=== PATIENT | male | born 1935 | race Asian ===

== ENCOUNTER 2018-11-11 12:58 | Observation (INO) | payer OTHER ==
[~2018-11-11] VITALS: Ht 165.1 cm; Wt 61.2 kg
[2018-11-11 13:01] VITALS: Ht 165.1 cm; Wt 61.2 kg
[2018-11-11 13:29] LABS: CARBON DIOXIDE 26.7 mmol/L (21-32); CHLORIDE SERUM 95 mmol/L (98-107); CREATININE SERUM 2.3 mg/dL (0.7-1.3); GLUCOSE SERUM 306 mg/dL (74-106); POTASSIUM SERUM 3.9 mmol/L (3.5-5.1); SODIUM SERUM 133 mmol/L (136-145)
[2018-11-11 13:30] LABS: BASOPHIL % 0.3 % (0-2); PLATELET COUNT 185 x10^3mcL (130-400); RED CELL DISTRIBUTION WIDTH 13.3 % (11.5-14.5)
[2018-11-11 13:34] LABS: ALKALINE PHOSPHATASE 61 U/L (46-116); ALT/SGPT 51 U/L (16-63); AST/SGOT 40 U/L (15-37); BILIRUBIN TOTAL 0.72 mg/dL (0.20-1.00); TOTAL PROTEIN, SERUM 8.2 g/dL (6.4-8.2)
[2018-11-11 13:37] LABS: ALBUMIN 3.2 g/dL (3.4-5.0)
[2018-11-11] MEDS ORDERED: PRAVASTATIN SOD40 M1 PO (15:13)
[2018-11-11] MEDS ORDERED: HYZAAR1 TAB PO (15:13)
[2018-11-11] MEDS ORDERED: JANUVIA100 M1 PO (15:15)
[2018-11-11] MEDS ORDERED: AMIODARONE HCL200 MG PO (15:15)
[2018-11-11] MEDS ORDERED: NOR10 PO (15:16)
[2018-11-11] MEDS ORDERED: AMARYL4 MG PO (15:17)
[2018-11-11 15:53] LABS: microscopic required? YES; urine erythrocyte 2+ (NEGATIVE)
[2018-11-11 18:49] VITALS: BP 154/65
[2018-11-11 20:42] VITALS: BP 159/63
[2018-11-12 05:39] VITALS: BP 124/50
[2018-11-12 07:12] LABS: ALKALINE PHOSPHATASE 50 U/L (46-116); ALT/SGPT 47 U/L (16-63); AST/SGOT 27 U/L (15-37); BILIRUBIN TOTAL 0.5 mg/dL (0.20-1.00); CARBON DIOXIDE 25.9 mmol/L (21-32); CHLORIDE SERUM 104 mmol/L (98-107); GLUCOSE SERUM 212 mg/dL (74-106); MAGNESIUM 2.3 mg/dL (1.8-2.4); POTASSIUM SERUM 4.2 mmol/L (3.5-5.1); SODIUM SERUM 138 mmol/L (136-145); TOTAL PROTEIN, SERUM 7.1 g/dL (6.4-8.2)
[2018-11-12 07:14] LABS: ALBUMIN 2.7 g/dL (3.4-5.0)
[2018-11-12 08:37] VITALS: BP 131/77
[2018-11-12 12:53] VITALS: BP 136/57
[2018-11-12 14:54] VITALS: BP 136/57
[2018-11-12 17:13] VITALS: BP 127/48
[2018-11-12 22:13] VITALS: BP 114/42
[2018-11-13 06:25] VITALS: BP 120/49
[2018-11-13 06:49] LABS: ALKALINE PHOSPHATASE 51 U/L (46-116); ALT/SGPT 48 U/L (16-63); AST/SGOT 28 U/L (15-37); BILIRUBIN TOTAL 0.3 mg/dL (0.20-1.00); CALCIUM 8.5 mg/dL (8.5-10.1); CARBON DIOXIDE 24.5 mmol/L (21-32); CREATININE SERUM 2.1 mg/dL (0.7-1.3); GLUCOSE SERUM 339 mg/dL (74-106); PHOSPHOROUS 3.7 mg/dL (2.5-4.9); TOTAL PROTEIN, SERUM 6.8 g/dL (6.4-8.2)
[2018-11-13 06:57] LABS: ALBUMIN 2.6 g/dL (3.4-5.0)
[2018-11-13 07:03] LABS: CHLORIDE SERUM 99 mmol/L (98-107); POTASSIUM SERUM 3.5 mmol/L (3.5-5.1); SODIUM SERUM 135 mmol/L (136-145)
[2018-11-13 09:30] VITALS: BP 122/50
[2018-11-13 12:06] VITALS: BP 107/56
[2018-11-13 17:01] VITALS: BP 125/49
[2018-11-13 21:00] VITALS: BP 124/53
[2018-11-14 05:10] VITALS: BP 113/49
[2018-11-14 06:10] LABS: PLATELET COUNT 212 x10^3mcL (130-400); RED CELL DISTRIBUTION WIDTH 13.3 % (11.5-14.5)
[2018-11-14 06:11] LABS: BASOPHIL % 0 % (0-2)
[2018-11-14 06:35] LABS: ALKALINE PHOSPHATASE 57 U/L (46-116); ALT/SGPT 43 U/L (16-63); AST/SGOT 25 U/L (15-37); BILIRUBIN TOTAL 0.23 mg/dL (0.20-1.00); CALCIUM 9.3 mg/dL (8.5-10.1); CARBON DIOXIDE 25.2 mmol/L (21-32); CHLORIDE SERUM 103 mmol/L (98-107); GLUCOSE SERUM 126 mg/dL (74-106); MAGNESIUM 2.4 mg/dL (1.8-2.4); PHOSPHOROUS 3.1 mg/dL (2.5-4.9); POTASSIUM SERUM 3.9 mmol/L (3.5-5.1); SODIUM SERUM 139 mmol/L (136-145); TOTAL PROTEIN, SERUM 7.5 g/dL (6.4-8.2)
[2018-11-14 07:01] LABS: ALBUMIN 2.7 g/dL (3.4-5.0)
[2018-11-14 09:38] VITALS: BP 118/52
[2018-11-14 13:17] VITALS: BP 115/49
[2018-11-14 17:32] VITALS: BP 109/40
[2018-11-14 18:50] VITALS: BP 125/49
[2018-11-14 21:00] VITALS: BP 127/50
[2018-11-15 05:15] VITALS: BP 119/49
[2018-11-15 06:55] LABS: ALKALINE PHOSPHATASE 57 U/L (46-116); ALT/SGPT 44 U/L (16-63); AST/SGOT 16 U/L (15-37); CALCIUM 8.8 mg/dL (8.5-10.1); CHLORIDE SERUM 101 mmol/L (98-107); GLUCOSE SERUM 181 mg/dL (74-106); MAGNESIUM 2.3 mg/dL (1.8-2.4); PHOSPHOROUS 3.9 mg/dL (2.5-4.9); POTASSIUM SERUM 3.8 mmol/L (3.5-5.1); SODIUM SERUM 138 mmol/L (136-145); TOTAL PROTEIN, SERUM 7.2 g/dL (6.4-8.2)
[2018-11-15 07:05] LABS: ALBUMIN 2.7 g/dL (3.4-5.0)
[2018-11-15 08:09] LABS: BASOPHIL % 0.1 % (0-2); PLATELET COUNT 228 x10^3mcL (130-400); RED CELL DISTRIBUTION WIDTH 13.6 % (11.5-14.5)
[2018-11-15 08:40] VITALS: BP 120/49
[2018-11-15] MEDS ORDERED: PREDNISONE20 MG PO (12:12)
[2018-11-15 12:44] VITALS: BP 135/58
[2018-11-15] MEDS ORDERED: COUMADIN2 MG PO (12:55)
[2018-11-15 13:45] VITALS: BP 135/58
== END 2018-11-15 14:30 | disposition home or self-care (01) | DRG 193 ==
LOC: ED 12:58 → DU 15:35
PROVIDERS: Emergency Medicine; Internal Medicine Pulmonary Disease; ADMIT Internal Medicine
DX: J18.9 Pneumonia, unspecified organism (principal); J96.01 Acute respiratory failure with hypoxia; N17.9 Acute kidney failure, unspecified; E87.1 Hypo-osmolality and hyponatremia; J44.1 Chronic obstructive pulmonary disease with (acute) exacerbation; E11.65 Type 2 diabetes mellitus with hyperglycemia; R31.9 Hematuria, unspecified; I12.9 Hypertensive chronic kidney disease with stage 1 through stage 4 chronic kidney disease, or unspecified chronic kidney disease; N18.9 Chronic kidney disease, unspecified; I48.0 Paroxysmal atrial fibrillation; M10.9 Gout, unspecified; E78.5 Hyperlipidemia, unspecified
CPT/HCPCS: 82947; 82962; 83880; 87804; G0378; J0456; J0696; J1644; J1940; J2920; J3490; J7030; J7050; J7620; J7644; Q0092

== ENCOUNTER 2019-08-22 01:37 | Inpatient (IN) | payer OTHER ==
[~2019-08-22] VITALS: Ht 165.1 cm; Wt 63.3 kg
[~2019-08-22 01:37] MED LIST: AMARYL4 MG PO; AMIODARONE HCL200 MG PO; COUMADIN2 MG PO; HYZAAR1 TAB PO; JANUVIA100 M1 PO; NOR10 PO; PRAVASTATIN SOD40 M1 PO; PREDNISONE20 MG PO
[2019-08-22 01:43] VITALS: Ht 165.1 cm; Wt 63.3 kg
[2019-08-22 02:55] LABS: BASOPHIL % 0.2 % (0-2); PLATELET COUNT 227 x10^3mcL (130-400); RED CELL DISTRIBUTION WIDTH 14.6 % (11.5-14.5)
[2019-08-22 03:00] LABS: UA SPECIFIC GRAVITY 1.015 (1.005-1.035); microscopic required? YES; urine erythrocyte 3+ (NEGATIVE)
[2019-08-22 03:06] LABS: CALCIUM 8.4 mg/dL (8.5-10.1); CARBON DIOXIDE 24.5 mmol/L (21-32); CHLORIDE SERUM 103 mmol/L (98-107); CREATININE SERUM 1.6 mg/dL (0.7-1.3); GLUCOSE SERUM 295 mg/dL (74-106); POTASSIUM SERUM 3.4 mmol/L (3.5-5.1); SODIUM SERUM 138 mmol/L (136-145)
[2019-08-22 03:12] LABS: ALKALINE PHOSPHATASE 57 U/L (46-116); ALT/SGPT 31 U/L (16-63); AST/SGOT 14 U/L (15-37); BILIRUBIN TOTAL 0.6 mg/dL (0.20-1.00)
[2019-08-22 03:13] LABS: ALBUMIN 2.6 g/dL (3.4-5.0)
[2019-08-22 03:26] LABS: CK-MB < 0.5 ng/mL (0-3.6); CREATINE KINASE 42 U/L (39-308)
[2019-08-22] MEDS ORDERED: ESBRIET267 MG PO (04:13)
[2019-08-22] MEDS ORDERED: ELIQUIS2.5 MG PO (04:13)
[2019-08-22 10:04] VITALS: BP 147/57
[2019-08-22] MEDS ORDERED: FLO4 PO (11:05)
[2019-08-22 12:38] VITALS: BP 146/57
[2019-08-22 16:55] VITALS: BP 143/60
[2019-08-22 20:56] VITALS: BP 126/70
[2019-08-23] VITALS (7 sets, daily range): BP systolic 125–147; BP diastolic 54–71
[2019-08-23 06:43] LABS: CALCIUM 9.3 mg/dL (8.5-10.1); CARBON DIOXIDE 21.9 mmol/L (21-32); CHLORIDE SERUM 107 mmol/L (98-107); CREATININE SERUM 1.6 mg/dL (0.7-1.3); GLUCOSE SERUM 271 mg/dL (74-106); POTASSIUM SERUM 3.8 mmol/L (3.5-5.1); SODIUM SERUM 141 mmol/L (136-145)
[2019-08-23 07:31] LABS: PLATELET COUNT 256 x10^3mcL (130-400)
[2019-08-23 07:38] LABS: BASOPHIL % 0 % (0-2); RED CELL DISTRIBUTION WIDTH 14.7 % (11.5-14.5)
[2019-08-23 15:32] LABS: BASOPHIL % 0 % (0-2); PLATELET COUNT 241 x10^3mcL (130-400); RED CELL DISTRIBUTION WIDTH 14.6 % (11.5-14.5)
== END 2019-08-23 21:35 | disposition home or self-care (01) | DRG 871 ==
LOC: ED 01:37 → DU 06:10
PROVIDERS: Emergency Medicine; Internal Medicine Pulmonary Disease; ADMIT Internal Medicine Pulmonary Disease
DX: A41.9 Sepsis, unspecified organism (principal); J18.9 Pneumonia, unspecified organism; N39.0 Urinary tract infection, site not specified; I48.20 Chronic atrial fibrillation, unspecified; J84.10 Pulmonary fibrosis, unspecified; I10 Essential (primary) hypertension; E11.9 Type 2 diabetes mellitus without complications; E78.5 Hyperlipidemia, unspecified; N40.0 Benign prostatic hyperplasia without lower urinary tract symptoms; Z79.01 Long term (current) use of anticoagulants
CPT/HCPCS: 82962; G0378; J0456; J0696; J1815; J1956; J2930; J7030; J7050; J7060; J7620; Q0092